=== PATIENT | female | born 1980 | race Caucasian/White ===

== ENCOUNTER → 2020-06-25 10:18 | Outpatient (CLI) | payer BC, SELFPAY ==
--- NOTE | ~2020-06-25 | US_ITS ---
EXAMINATION: US thyroid DATE: 06/25/2020 10:48 INDICATION: Thyroid nodules. TECHNIQUE: Multiple ultrasound images of the thyroid were obtained. COMPARISON: Thyroid ultrasound 05/20/2013, 03/10/2014, 08/30/2018 FINDINGS: The right thyroid lobe measures 6.3 x 1.8 x 2.0 cm. There are changes of left hemithyroidectomy. In t he right thyroid lobe, there is a 1.5 cm solid, hypoechoic, uqfqm-iiof-gksl nodule with smooth margin without echogenic foci (TI-RADS TR4), likely stable from 08/30/18 considering differences in techniqu e. In the right thyroid lobe, there is a 1.1 cm solid, hypoechoic, imlhj-jcdv-jzpz nodule with ill-de fined margin without echogenic foci (TR4), stable from 08/30/18. In the right thyroid lobe, there is a 1.9 cm solid, hypoechoic, ddcrh-ydmd-chlo nodule with lobulated margin without echogenic foci (TR4), stable from 10/09/18 when biopsy demonstrated benign pathology. IMPRESSION: 1. Stable multinodular goiter. Given the history of multiple benign thyroid biopsies, further evaluat ion may not be needed. Reviewed, dictated and finalized at location A. IMPRESSION: 1. Stable multinodular goiter. Given the history of multiple benign thyroid bio psies, further evaluation may not be needed.
== END ==
PROVIDERS: PCP Family Medicine; Visit Provider Internal Medicine Endocrinology, Diabetes & Metabolism
DX: E04.2 Nontoxic multinodular goiter (principal)
CPT/HCPCS: 76536

== ENCOUNTER → 2020-08-05 15:22 | Outpatient (CLI) | payer BC, SELFPAY ==
--- NOTE | ~2020-08-05 | MM_ITS ---
EXAMINATION: MM screening roxy BI w opal HISTORY: Screening TECHNIQUE: Craniocaudal and mediolateral oblique 3-D tomosynthesis images were obtained and synthetic 2-D images were generated. CAD analysis was submitted and interpreted. COMPARISON: Comparison to multiple prior studies sequentially, with oldest reviewed study dated 08/24. BREAST PARENCHYMAL COMPOSITION: The breasts are heterogeneously dense, which may obscure small masses . FINDINGS: There is no evidence of suspicious mass, calcification, or architectural distortion to sugg est malignancy in either breast. There has been no suspicious interval change. IMPRESSION: 1. No mammographic evidence of malignancy. 2. Recommend routine screening mammography in one year. BI-RADS Category 1: Negative Reviewed, dictated and finalized at location A.
== END ==
PROVIDERS: Visit Provider Obstetrics & Gynecology Gynecology
DX: Z12.31 Encounter for screening mammogram for malignant neoplasm of breast (principal)
CPT/HCPCS: 77063; 77067

== ENCOUNTER → 2021-06-23 15:12 | Outpatient (CLI) | payer BC, SELFPAY ==
--- NOTE | ~2021-06-23 | US_ITS ---
EXAMINATION: US thyroid DATE: 06/23/2021 15:30 INDICATION: Nontoxic multinodular goiter TECHNIQUE: Multiple ultrasound images of the thyroid were obtained. COMPARISON: None. FINDINGS: The right thyroid lobe measures 6.1 x 2.8 x 2.6 cm. The left thyroid lobe is not visualized post rep orted prior left thyroidectomy. No abnormal soft tissue identified at the left thyroid fossa. There a re several nodules in the right thyroid lobe. This includes a 2.4 cm wider than tall solid hypoechoic nodule with smooth margins and without echogenic foci (TI-RADS 4, moderately suspicious , FNA if >=1 .5 cm, annual followup is >=1 cm) which previously measured 1.9 cm and which has been previously biop sied on 10/09/2018 with benign pathology. There is a 1.2 cm mixed solid and cystic isoechoic nodule w ith smooth margins (TI-RADS 2, not suspicious, no FNA recommended). Finally there is an 11 mm wider t garcia tall solid very hypoechoic nodule with smooth margins and without echogenic foci TI RADS 4. IMPRESSION: 1. No significant interval change in a multinodular goiter post prior left thyroidectomy. The largest and only nodule meeting criteria for biopsy has been previously biopsied with benign pathology. Xavier mmend continued annual ultrasound follow-up. Reviewed, dictated and finalized at location A. IMPRESSION: 1. No significant interval change in a multinodular goiter post prior left thyr oidectomy. The largest and only nodule meeting criteria for biopsy has been pre viously biopsied with benign pathology. Recommend continued annual ultrasound f ollow-up.
== END ==
PROVIDERS: PCP Family Medicine; Visit Provider Internal Medicine Endocrinology, Diabetes & Metabolism
DX: E04.2 Nontoxic multinodular goiter (principal)
CPT/HCPCS: 76536

== ENCOUNTER 2021-07-08 10:26 | Outpatient (CLI) | payer BC, SELFPAY ==
--- NOTE | ~2021-07-08 | US_ITS ---
EXAMINATION: US FNA w image guidance DATE: 07/08/2021 11:54 INDICATION: Right thyroid nodule. TECHNIQUE: The procedure and its benefits and risks were discussed with the patient. Risks specifically discusse d included bleeding. The patient verbalized understanding of the risks and agreed to proceed. The nec k was prepped and draped in the usual sterile manner. 1% lidocaine was used for local anesthesia. 5 passes were made with a 25G needle into the lesion under ultrasound guidance. There were no immedia te complications. The patient understood to call the ordering physician for results after a week and a half and verbalized that understanding. FINDINGS: Grayscale ultrasound images demonstrate needles advanced into a 2.4 cm nodule in right thyroid lobe f or biopsy. IMPRESSION: 1. Ultrasound-guided fine needle aspiration of a right thyroid nodule. Reviewed, dictated and finalized at location A.
== END 2021-07-08 10:27 | disposition home or self-care (01) ==
LOC: ANHIMG 10:32
PROVIDERS: PCP Family Medicine; Visit Provider Internal Medicine Endocrinology, Diabetes & Metabolism
DX: E04.2 Nontoxic multinodular goiter (principal)
CPT/HCPCS: 10005; 88173; 88305

== ENCOUNTER → 2021-09-22 15:50 | Outpatient (CLI) | payer BC, SELFPAY ==
--- NOTE | ~2021-09-22 | MM_ITS ---
EXAMINATION: MM screening roxy BI w opal HISTORY: Screening mammogram TECHNIQUE: Craniocaudal and mediolateral oblique 3-D tomosynthesis images were obtained and synthetic 2-D images were generated. CAD analysis was submitted and interpreted. COMPARISON: 08/05/2020, 09/02/2019, 08/2018 bilateral screening mammogram examinations BREAST PARENCHYMAL COMPOSITION: The breasts are heterogeneously dense, which may obscure small masses . FINDINGS: There is no evidence of suspicious mass, calcification, or architectural distortion to sugg est malignancy in either breast. There has been no suspicious interval change. IMPRESSION: 1. No mammographic evidence of malignancy. 2. Recommend routine screening mammography in one year. BI-RADS Category 1: Negative Reviewed, dictated and finalized at location A.
== END ==
PROVIDERS: PCP Family Medicine; Visit Provider Nurse Practitioner
DX: Z12.31 Encounter for screening mammogram for malignant neoplasm of breast (principal)
CPT/HCPCS: 77063; 77067

== ENCOUNTER → 2022-08-02 08:49 | Outpatient (CLI) | payer BC, SELFPAY ==
--- NOTE | ~2022-08-02 | XR_ITS ---
EXAMINATION: XR lumbar spine min 4V DATE: 08/02/2022 09:08 INDICATION: Dorsalgia, unspecified. TECHNIQUE: 5 views of lumbar spine were obtained. COMPARISON: Lumbar spine radiographs 09/02/19 FINDINGS: Bone alignment is normal. Vertebral body heights are normal. There are endplate osteophytes at multiple levels. 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 IMPRESSION: 1. Mild lumbar spondylosis. Reviewed, dictated and finalized at location A. IMPRESSION: 1. Mild lumbar spondylosis.
== END ==
PROVIDERS: PCP Family Medicine; Visit Provider Nurse Practitioner Gerontology
DX: M47.896 Other spondylosis, lumbar region (principal)
CPT/HCPCS: 72110

== ENCOUNTER → 2022-09-26 14:55 | Outpatient (CLI) | payer BC, SELFPAY ==
--- NOTE | ~2022-09-26 | US_ITS ---
EXAMINATION: US thyroid DATE: 09/26/2022 15:11 INDICATION: Right thyroid nodule. TECHNIQUE: Multiple ultrasound images of the thyroid were obtained. COMPARISON: None. FINDINGS: The right thyroid lobe measures 6.1 x 2.7 x 2.7 cm. Status post left thyroidectomy with no abnormal tissue identified at the empty left thyroid fossa. No significant change in a few similar-appearing n odules in the right thyroid lobe, the largest a 2.1 cm wider than tall predominately solid hypoechoic nodule with smooth margins and without echogenic foci (TI-RADS 4, moderately suspicious , FNA if >=1 .5 cm, annual followup is >=1 cm). This nodule appears to represent the previously biopsied nodule bu t now containing a new 1 cm anechoic cystic region. The biopsy pathology result was consistent with benign follicular nodule. There is normal echotexture, echogenicity and vascular flow throughout the surrounding thyroid gland. IMPRESSION: 1. No significant interval change in a multinodular goiter post prior left thyroidectomy. Prior benig n biopsy of the largest 2.1 cm nodule. Reviewed, dictated and finalized at location B. IMPRESSION: 1. No significant interval change in a multinodular goiter post prior left thyr oidectomy. Prior benign biopsy of the largest 2.1 cm nodule.
== END ==
PROVIDERS: PCP Family Medicine; Visit Provider Internal Medicine Endocrinology, Diabetes & Metabolism
DX: E04.2 Nontoxic multinodular goiter (principal)
CPT/HCPCS: 76536

== ENCOUNTER → 2022-09-26 14:56 | Outpatient (CLI) | payer BC, SELFPAY ==
--- NOTE | ~2022-09-26 | MM_ITS ---
EXAMINATION: MM screening roxy BI w opal HISTORY: Screening TECHNIQUE: Craniocaudal and mediolateral oblique 3-D tomosynthesis images were obtained and synthetic 2-D images were generated. CAD analysis was submitted and interpreted. COMPARISON: Comparison to multiple prior studies sequentially, with oldest reviewed study dated 08/24. BREAST PARENCHYMAL COMPOSITION: The breasts are heterogeneously dense, which may obscure small masses FINDINGS: There is no evidence of suspicious mass, calcification, or architectural distortion to sugg est malignancy in either breast. There has been no suspicious interval change. IMPRESSION: 1. No mammographic evidence of malignancy. 2. Recommend routine screening mammography in one year. BI-RADS Category 1: Negative Reviewed, dictated and finalized at location A.
== END ==
PROVIDERS: PCP Family Medicine; Visit Provider Nurse Practitioner
DX: Z12.31 Encounter for screening mammogram for malignant neoplasm of breast (principal)
CPT/HCPCS: 77063; 77067

== ENCOUNTER → 2023-12-14 14:10 | Outpatient (CLI) | payer OTHER, SELFPAY ==
--- NOTE | ~2023-12-14 | MM_ITS ---
EXAMINATION: MM screening roxy BI w opal HISTORY: Screening TECHNIQUE: Craniocaudal and mediolateral oblique 3-D tomosynthesis images were obtained and synthetic 2-D images were generated. CAD analysis was submitted and interpreted. COMPARISON: 09/26/2022 BREAST PARENCHYMAL COMPOSITION: The breasts are heterogeneously dense, which may obscure small masses FINDINGS: There is no evidence of suspicious mass, calcification, or architectural distortion to sugg est malignancy in either breast. There has been no suspicious interval change. IMPRESSION: 1. No mammographic evidence of malignancy. 2. Recommend routine screening mammography in one year. BI-RADS Category 1: Negative Reviewed, dictated and finalized at location A. 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
== END ==
PROVIDERS: PCP Nurse Practitioner; Visit Provider Nurse Practitioner
DX: Z12.31 Encounter for screening mammogram for malignant neoplasm of breast (principal)
CPT/HCPCS: 77063; 77067

== ENCOUNTER 2024-06-18 11:48 | Outpatient (CLI) | payer OTHER, SELFPAY ==
--- NOTE | ~2024-06-18 | US_ITS ---
EXAMINATION: US thyroid DATE: 06/18/2024 12:07 INDICATION: Nontoxic multinodular goiter TECHNIQUE: Multiple ultrasound images of the thyroid were obtained. COMPARISON: 09/26/2022 and 07/08/2021 FINDINGS: The right thyroid lobe measures 7.1 x 2.5 x 3.1 cm. The left thyroid lobe has been surgically remove d with no residual soft tissue identified at the left thyroid fossa. There are multiple similar-appea ring solid or predominantly solid nodules in the right thyroid lobe which are wider than tall, slight ly hypoechoic with smooth to ill-defined margins and without echogenic foci (TI-RADS 4, moderately belcher spicious , FNA if >=1.5 cm, annual followup is >=1 cm). The largest measures 2.9 x 1.9 x 1.9 cm and m easured 2.4 x 1.5 x 1.3 cm at the time of a prior biopsy demonstrating benign pathology on 07/08/2021. IMPRESSION: 1. Status post left thyroidectomy. 2. Multiple TI RADS 4 nodules in the remaining right thyroid lobe. The largest nodule measuring 2.9 c m in the current study has increased in size substantially since an earlier benign biopsy on to warrant rebiopsy. Reviewed, dictated and finalized at location A. IMPRESSION: 1. Status post left thyroidectomy. 2. Multiple TI RADS 4 nodules in the remaining right thyroid lobe. The largest nodule measuring 2.9 cm in the current study has increased in size substantiall y since an earlier benign biopsy on 07/08/2021 to warrant rebiopsy.
== END 2024-06-18 11:49 ==
LOC: MICIMG 11:49
PROVIDERS: PCP Family Medicine; Visit Provider Internal Medicine Endocrinology, Diabetes & Metabolism
DX: E04.2 Nontoxic multinodular goiter (principal)
CPT/HCPCS: 76536

== ENCOUNTER 2024-08-13 12:35 | Outpatient (CLI) | payer OTHER, SELFPAY ==
--- NOTE | ~2024-08-13 | US_ITS ---
EXAMINATION: US FNA w image guidance DATE: 08/13/2024 13:38 INDICATION: Right thyroid nodule. TECHNIQUE: The procedure and its benefits and risks were discussed with the patient. Risks specifically discusse d included bleeding. The patient verbalized understanding of the risks and agreed to proceed. The nec k was prepped and draped in the usual sterile manner. 1% lidocaine was used for local anesthesia. 7 passes were made with a 25G needle into the lesion under ultrasound guidance. There were no immedia te complications. FINDINGS: Grayscale ultrasound images demonstrate needles advanced into a 2.9 cm nodule in right thyroid lobe f or biopsy. IMPRESSION: 1. Ultrasound-guided fine needle aspiration of a right thyroid nodule. Reviewed, dictated and finalized at location A.
== END 2024-08-13 12:36 | disposition home or self-care (01) ==
PROVIDERS: PCP Family Medicine; Visit Provider Internal Medicine Endocrinology, Diabetes & Metabolism
DX: E04.2 Nontoxic multinodular goiter (principal)
CPT/HCPCS: 10005; 88172; 88173; 88177; 88305

== ENCOUNTER 2024-12-16 15:53 | Outpatient (CLI) | payer OTHER, SELFPAY ==
--- NOTE | ~2024-12-16 | MM_ITS ---
EXAMINATION: MM screening roxy BI w opal HISTORY: Screening TECHNIQUE: Craniocaudal and mediolateral oblique 3-D tomosynthesis images were obtained and synthetic 2-D images were generated. CAD analysis was submitted and interpreted. COMPARISON: Comparison to multiple prior studies sequentially, with oldest reviewed study dated 02/2018. BREAST PARENCHYMAL COMPOSITION: Not dense: There are scattered areas of fibroglandular density. FINDINGS: There is no evidence of suspicious mass, calcification, or architectural distortion to sugg est malignancy in either breast. There has been no suspicious interval change. IMPRESSION: 1. No mammographic evidence of malignancy. 2. Recommend routine screening mammography in one year. BI-RADS Category 1: Negative Reviewed, dictated and finalized at location A. AT CONTR[employer]
== END 2024-12-16 15:54 | disposition home or self-care (01) ==
PROVIDERS: PCP Family Medicine; Visit Provider Nurse Practitioner
DX: Z12.31 Encounter for screening mammogram for malignant neoplasm of breast (principal)
CPT/HCPCS: 77063; 77067